=== PATIENT | female | born 1940 | race Caucasian/White ===

== ENCOUNTER 2023-01-17 16:13 | Emergency (ER) | payer MEDICARE, OTHER ==
[2023-01-17 16:47] LABS: BASOPHILS ABSOLUTE AUTO 0.02 10^3/uL (0.00-0.10); BASOPHILS PERCENT AUTO 0.2 % (0.0-1.0); EOSINOPHILS ABSOLUTE AUTO 0.08 10^3/uL (0.10-0.30); EOSINOPHILS PERCENT AUTO 0.9 % (1.0-3.0); HEMATOCRIT 39.5 % (37.0-47.0); HEMOGLOBIN 12.1 g/dL (12.0-16.0); IMMATURE GRAN ABSOLUTE AUTO 0.01 10^3/uL (0.00-0.50); IMMATURE GRAN PERCENT AUTO 0.1 % (0.0-5.0); LYMPHOCYTES ABSOLUTE AUTO 1.43 10^3/uL (1.00-4.00); LYMPHOCYTES PERCENT AUTO 15.2 % (20.0-40.0); MEAN CORPUSCULAR HEMOGLOBIN 26.5 pg (27.0-31.0); MEAN CORPUSCULAR HGB CONC 30.6 g/dL (32.0-36.0); MEAN CORPUSCULAR VOLUME 86.6 fL (82.0-92.0); MEAN PLATELET VOLUME 9.1 fL (7.4-10.4); MONOCYTES ABSOLUTE AUTO 0.81 10^3/uL (0.10-0.80); MONOCYTES PERCENT AUTO 8.6 % (2.0-8.0); NEUTROPHILS ABSOLUTE AUTO 7.03 10^3/uL (2.50-7.00); PLATELET COUNT,PLT 201 10^3/uL (150-400); RED BLOOD CELL COUNT 4.56 10^6/uL (3.80-5.50); RED CELL DISTRIBUTION WIDTH 13.7 % (11.5-14.5); WHITE BLOOD CELL COUNT,WBC 9.38 10^3/uL (5.00-10.00)
[2023-01-17 16:58] LABS: ALANINE AMINOTRANSFERASE,ALT 16 U/L (14-63); ALKALINE PHOSPHATASE 101 U/L (46-116); ANION GAP 13.7 mmol/L (5-15); ASPARTATE AMNIOTRANSFERASE,AST 23 U/L (15-37); BILIRUBIN TOTAL 0.4 mg/dL (0.2-1.0); BLOOD UREA NITROGEN,BUN 16 mg/dL (7-18); CALCIUM 9.3 mg/dL (8.7-10.3); CARBON DIOXIDE,CO2 31.3 mmol/L (21.0-32.0); CHLORIDE,CL 102 mmol/L (98-107); CREATININE 0.94 mg/dL (0.51-1.17); ESTIMATED GFR 61 mL/min (>=60); GLUCOSE RANDOM 108 mg/dL (70-140); PROTEIN TOTAL,TP 8.2 g/dL (6.4-8.2); SODIUM,NA 143 mmol/L (136-145)
[2023-01-17] MEDS ORDERED: Sodium Chloride 0.9% 1,000 ML IV ONE (17:35)
[2023-01-17] MEDS ORDERED: HYDROmorphone 1 MG/ML Syringe IVPUSH ONE (17:39)
[2023-01-17] MEDS ORDERED: Iopamidol 755 Mg/ML 100 ML Bottle IV ONE (17:42)
[2023-01-17] MEDS ORDERED: Sodium Chloride 0.9% 50 ML IV SCH (17:45)
[2023-01-17 18:32] LABS: APPEARANCE,URINE CLOUDY (CLEAR); BILIRUBIN,URINE NEGATIVE (NEGATIVE); COLOR,URINE YELLOW (YELLOW); GLUCOSE,URINE NEGATIVE (NEGATIVE); KETONES,URINE NEGATIVE (NEGATIVE); LEUKOCYTE ESTERASE,URINE SMALL (NEGATIVE); NITRITE,URINE POSITIVE (NEGATIVE); OCCULT BLOOD,URINE TRACE-INTACT (NEGATIVE); PH,URINE 5.5 (5.0-9.0); PROTEIN,URINE NEGATIVE (NEGATIVE); UROBILINOGEN,URINE 0.2 E.U./dL (0.2-1.0)
[2023-01-17 18:41] LABS: BACTERIA,URINE FEW /HPF (NONE TO FEW); RBC,URINE 0-5 /HPF (0-5)
== END 2023-01-17 19:10 ==
LOC: KA.ED 16:13
DX: G30.9 Alzheimer's disease, unspecified (principal); F02.80 Dementia in other diseases classified elsewhere, unspecified severity, without behavioral disturbance, psychotic disturbance, mood disturbance, and anxiety; N30.01 Acute cystitis with hematuria; K59.01 Slow transit constipation; Z88.6 Allergy status to analgesic agent; Z88.0 Allergy status to penicillin; Z88.2 Allergy status to sulfonamides; Z88.8 Allergy status to other drugs, medicaments and biological substances
CPT/HCPCS: 74018; 74177; 80053; 81001; 85025; 87086; 87088; 96360; 99284; C1758; J3490; J7030; Q9967; 87186